=== PATIENT | male | born 1945 | race Caucasian/White ===

== ENCOUNTER → 2023-09-14 08:27 | Outpatient (REF) | payer MEDICARE, OTHER, SELFPAY | LOC: DHCBS MAIN 08:27 | PROVIDERS: ATTENDING PHYSICIAN Internal Medicine Cardiovascular Disease; FAMILY PHYSICIAN Family Medicine | DX: I35.0 Nonrheumatic aortic (valve) stenosis (principal) | CPT/HCPCS: 93306 ==

== ENCOUNTER 2024-05-13 16:04 | Emergency (ER) | payer MEDICARE, OTHER, SELFPAY ==
[2024-05-13 16:05] VITALS: BP 153/69
[2024-05-13 18:41] VITALS: BP 169/68
[2024-05-13] MEDS: ADACEL 0.5 ML IM (18:48)
--- NOTE | 2024-05-13 18:49 | ED.GENMED ---
History of Present Illness
General
Chief Complaint: Eye Problems
Source: patient and family
Exam Limitations: none
Time Seen by Provider: 05/13/24 18:04
Nursing documentation reviewed up to this point in time: agreed with
History of Present Illness
History of Present Illness:
78-year-old male A-fib on Xarelto status post cataract surgery by Dr. Rolan Guadarrama presents with right eye trauma around 435 this afternoon he was mowing the lawn a branch went into his eye he has pain and bleeding, swelling
Past History
Past History
ED Past Medical History: Arrthythmia, HTN and Hypercholesterolemia
ED Past Surgical History: Orthopedic (arthroscopic left shoulder, right knee)
Social History
Tobacco: Non-smoker
Alcohol: None
Drug: None
Personal:
Living: with family
Employment: Retired
Phy Exam
Physical Exam
Physical Exam:
Physical Exam
General: no apparent distress, not acutely ill
Neck: Right eye right lid swelling, injury to the sclera at 2:00 no apparent injury to the cornea, small laceration in the soft tissue beneath the right lid margin
Lungs: no acute respiratory distress.
Neuro: alert and oriented. no focal neurological deficits
Skin: no rash
Psychiatric: well kept. interactive and cooperative
Extremities: no edema.
Course
Orders/Labs/Results
Orders:
Orders
05/13/24 18:36
CT Head W/o Iv Contrast Urgent
Comment:
Reason For Exam: trauma
05/13/24 18:37
CT Orbits W/o Iv Contrast Stat
Comment:
Reason For Exam: trauma OD
Tetanus/Diphth/Acelpertussis [Adacel] 0.5 ml IM .ONCE ONE
05/13/24 19:56
Erythromycin (Ilotycin) [Erythromycin 0.5% Ophthalmic Ointment] See Dose Instructions OPHTH NOW STA
Oxycodone/Acetaminophen [Percocet 5/325] 1 tablet PO NOW STA
Vital Signs
Initial and Last Documented VS:
Initial Vital Signs
Temp Pulse Resp BP Pulse Ox
98 F 65 18 153/69 98
05/13/24 16:05 05/13/24 16:05 05/13/24 16:05 05/13/24 16:05 05/13/24 16:05
Last Documented Vital Signs
Temp Pulse Resp BP Pulse Ox
98 F 65 18 169/68 98
05/13/24 16:05 05/13/24 16:05 05/13/24 16:05 05/13/24 18:41 05/13/24 18:45
MDM/Problems Addressed
Differential Diagnosis Includes:
Intraocular injury, scleral laceration, scleral abrasion retrobulbar hematoma corneal abrasion
MDM/Problems Addressed:
Eye injury
Chronic conditions affecting care:
Prior cataract surgery, patient is on blood thinners for A-fib
Acute Exacerbation and/or Progression of Chronic Illness:
Prior cataract surgery patient is on blood thinners for A-fib
*Radiology
Radiology exam reviewed: radiology read reviewed
*Pulse Oximetry
Patient hypoxic: no
*Critical Care Note
Total Time (30-74mins, 75-104mins- exclusive of procedures): Not Applicable
Update Note
Update Note:
Intraocular pressure 19 in the right and left eye, did have decreased visual acuity initially, does have corneal abrasion scleral uptake around midnight CT scan shows no intracerebral hemorrhage, no retrobulbar hematoma no intraocular foreign body
or bleeding
Will repeat his visual acuities
Update, lids everted, some thick mucus removed vision improved does have a corneal abrasion around 12:00, negative swinging flashlight test no afferent pupillary defect, no worsening swelling, but this point I believe he can safely be discharged
with antibiotic ointment, he will hold his Xarelto for 24 to 48 hours as he is done this previously, follow-up with his applications system analyst the ER if worsening symptoms
ED Attending Note
-
Portions of this chart may have been created with voice recognition software.� Occasional wrong word or��sound alike� substitutions may have occurred due to the inherent limitations of voice recognition software.
Discharge Plan
Departure
Patient Disposition: Home (Routine Discharge)
Date of Disposition: 05/13/24
Time of Disposition: 19:57
Patient with high blood pressure during this ER visit?: No
Condition: Good
Discharge Problem:
Eye injuries
Instructions: Corneal Abrasion (DC), Subconjunctival Hemorrhage
Prescriptions:
No Action
simvastatin 20 MG tablet
20 mg PO HS
Vitamin C 1,000 mg Tablet Extended Release
1,000 mg PO DAILY
valsartan 160 mg Tablet
160 mg PO DAILY
Fish Oil (with DHA-EPA) Capsule
1 cap PO DAILY
Xarelto 20 mg Tablet
20 mg PO DAILY
omeprazole 40 mg Capsule,Delayed Release(Dr/Ec)
40 mg PO DAILY
calcium polycarbophil [Konsyl Fiber] 625 mg Tablet
1,250 mg PO DAILY
Referrals:
Tobin Reyna MD [Family Provider] -
Activity Restrictions/Additional Instructions:
No Xarelto today and tomorrow
Antibiotic ointment 3 times a day small amount tear right eye
Tylenol or Percocet every 4-6 hours for pain
Call your eye surgeon tomorrow to arrange follow-up care return to the ER for worsening symptoms
Interventions
Interventions:
*General Assessment Last Done: 05/13/24 18:08
Discharge Date and Time
Print Language: ARGENTINE
[2024-05-13 19:10] VITALS: BP 168/54
[2024-05-13 20:00] VITALS: BP 148/53
[2024-05-13] MEDS: PERCOCET 5/325 1 TABLET PO (20:10)
[2024-05-13] MEDS: ERYTHROMYCIN 0.5% OPHTHALMIC OINTMENT 1 APPLIC OPHTH (20:11)
== END 2024-05-13 20:35 | disposition home or self-care (01) ==
LOC: EMR 16:04
PROVIDERS: EMERGENCY PHYSICIAN Emergency Medicine; FAMILY PHYSICIAN Family Medicine
DX: S05.01XA Injury of conjunctiva and corneal abrasion without foreign body, right eye, initial encounter (principal); S01.111A Laceration without foreign body of right eyelid and periocular area, initial encounter; W22.8XXA Striking against or struck by other objects, initial encounter; Y93.H2 Activity, gardening and landscaping; Z23 Encounter for immunization; I48.91 Unspecified atrial fibrillation; I10 Essential (primary) hypertension; E78.00 Pure hypercholesterolemia, unspecified; Z79.01 Long term (current) use of anticoagulants
CPT/HCPCS: 99283; 90471; 70450; 70480; 90715

== ENCOUNTER 2024-07-09 21:03 | Observation (INO) | payer MEDICARE, OTHER, SELFPAY ==
[2024-07-09 18:03] VITALS: BP 148/59
[2024-07-09 18:19] LABS: % Basophils 0.2 % (0-2); % Immature Granulocytes 0.3 % (0-0.5); % Lymphocytes 7.2 % (20.5-51.1); % Monocytes 9.8 % (1.7-9.3); % Neutrophils 82.5 % (42.2-75.2); Absolute Lymphocytes 0.4 10^3/uL (1.2-3.4); Absolute Monocytes 0.6 10^3/uL (0.1-0.6); Absolute Neutrophils 5.1 10^3/uL (1.4-6.5); Hematocrit 36.2 % (39.0-52.0); Hemoglobin 12.7 g/dL (13.0-18.0); Mean Corp Hgb Conc. 35.1 g/dL (33.0-37.0); Mean Corpuscular Hgb 29.4 pg (27.0-31.0); Mean Corpuscular Volume 83.8 fL (80.0-94.0); Mean Platelet Volume 9.9 fL (7.4-10.4); Nucleated Red Blood Cells % 0 % (-); Platelet Count 143 10^3/uL (130-400); Red Blood Cell Count 4.32 10^6/uL (4.70-6.10); Red Cell Dist. Width 12.9 % (11.5-14.5); White Blood Cell Count 6.1 10^3/uL (4.8-10.8)
[2024-07-09 18:30] LABS: Lactic Acid 1.3 mmol/L (0.7-2.0)
[2024-07-09 18:36] LABS: COVID-19 Antigen Positive (Negative)
[2024-07-09 18:42] LABS: ALT (SGPT) 26 U/L (0-50); AST (SGOT) 30 U/L (17-59); Albumin 4.4 g/dl (3.5-5.0); Alkaline Phosphatase 65 U/L (38-126); Blood Urea Nitrogen 19 mg/dl (9-20); Calcium 8.7 mg/dl (8.4-10.2); Carbon Dioxide 20 mmol/L (22-30); Chloride 102 mmol/L (98-107); Glucose 127 mg/dl (70-99); Potassium 3.7 mmol/L (3.5-5.1); Sodium 134 mmol/L (135-145); Total Bilirubin 0.9 mg/dl (0.2-1.3); Total Protein 6.8 g/dl (6.3-8.2); Troponin I < 0.012 ng/ml; eGFR > 60.00
[2024-07-09 19:00] VITALS: BP 140/54
--- NOTE | 2024-07-09 19:37 | ED.GENMED ---
History of Present Illness
General
Chief Complaint: Fever
Source: patient
Exam Limitations: none
Time Seen by Provider: 07/09/24 18:21
History of Present Illness
History of Present Illness:
This is a 78 year old male that comes in with c/o weakness and diarrhea. States that he did not feel good yesterday. Today he was unable to get up and he had diarrhea. states that every time he tried to get up he fell backward. States that he has
had a fever, diarrhea, headache and dizziness. Deneis any chills, chest pain, SOB, abd pain, nausea, vomiting, urinary burning.
Past History
Past History
ED Past Medical History: Arrthythmia, HTN and Hypercholesterolemia
ED Past Surgical History: Orthopedic (arthroscopic left shoulder, right knee)
Social History
Tobacco: Former smoker
Alcohol: None
Drug: None
Personal:
Living: with family
Employment: Retired
Review of Systems
Review of Systems
All Other Systems: ROS reviewed and negative except as documented in HPI and ROS
Constitutional: Reports fever; Denies chills
EENT: Reports no symptoms
Respiratory: Reports no symptoms; Denies cough or trouble breathing
Cardiac: Reports no symptoms; Denies chest pain
ABD/GI: Reports diarrhea; Denies abdominal pain, nausea or vomiting
: Reports no symptoms; Denies dysuria, frequency or urgency
Musculoskeletal: Reports no symptoms
Skin: Reports no symptoms
Neurological: Reports dizzy and headache
Psychiatric: Reports no symptoms
Phy Exam
General Physical Exam
General Presentation: no apparent distress
General age: appears stated age
General Skin: warm and dry
General Habitus: elderly
General Mental: alert
General Hydration: dry mucous membranes
ENT Exam
ENT Exam: TM's normal, pharynx normal and neck supple
Eye Exam
Eye Exam: PERRL and EOMI
Cardiovascular Exam
Cardiovascular Exam: regular rate/rhythm and normal peripheral pulses
Pulmonary Exam
Pulmonary Exam: lungs clear, no respiratory distress, no rales, chest non tender, no crackles, no rhonchi, no wheezing and no cough
Gastrointestinal Exam
Gastrointestinal Exam: normal bowel sounds, non tender, soft, no organomegaly, no pulsatile mass and non distended
NIH Stroke Score
Level of Consciousness: 0 - Alert
LOC questions: 0-Answers both correctly
LOC Commands: 0-Performs both correctly
Best Gaze: 0-Normal
Visual Sow: 0=Normal, no visual loss
Facial palsy: 0=Normal, symmetrical
Motor - Right Arm: 0=No drift 10 seconds
Motor - Left Arm: 0=No drift 10 seconds
Motor - Right Le-No drift 5 seconds
Motor - Left Le-No drift 5 seconds
Limb Ataxia: 0-Absent
Sensation: 0-Normal
Best Language: 0-No aphasia
Dysarthria: 0-Normal
Extinction and Inattention: 0-No abnormality
Total Score:: 0
Musculoskeletal Exam
Musculoskeletal Exam: full ROM and no edema
Skin Exam
Skin Exam: normal color, warm/dry, no rash and no petechia
Psychiatric Exam
Psychiatric Exam: normal mood/affect
Course
Orders/Labs/Results
Orders:
Orders
07/09/24 18:05
Electrocardiogram (*1) Urgent
Reason for Study: Fatigue / Weakness
07/09/24 18:06
EKG- Treatment ONCE
07/09/24 18:07
COVID-19 Antigen Urgent
Source: Nasal Swab
Complete Blood Count/With Diff Urgent
Comprehensive Metabolic Panel Urgent
Lactic Acid Urgent
Troponin I Urgent
INF RAPID [Influenza A+B Rapid Molecular] Urgent
DYLON Source: Nasal Swab
Specimen Description:
07/09/24 18:14
CR Chest - 2 Views Urgent
Comment:
Reason For Exam: fever
07/09/24 19:36
Rectal Temp- Treatment ONCE
Urinalysis Reflex To Culture Urgent
07/09/24 19:37
STOOL [C difficile Antigen & Toxins] Urgent
DYLON Source: Feces/Stool
Specimen Description:
Stool Culture Urgent
DYLON Source: Feces/Stool
Specimen Description:
Stool For WBC Urgent
DYLON Source: Feces/Stool
Specimen Description:
0.9% Sodium Chloride 1000 ml [Nss] 1,000 ml IV BOLUS
07/09/24 19:38
CT Head W/o Iv Contrast Urgent
Comment:
Reason For Exam: unable to get up, Falls
07/09/24 20:26
Admit/Transfer Patient As Directed
Co-Sign Provider:
Level of Care: Observation services
Assign to:: Medical/Surgical
Physician / Group: hospitalist
Diagnosis: COVID 19 infection
07/09/24 20:28
PRN Pain Medication Management As Directed
May give lesser potent ordered pain med per pt: Yes
preference::
Protocol:: Medication orders for pain may be administered in a
manner that supports deferring to patient preference
when the pt is:
- Requesting an ordered lesser potent pain medication.
Least to most potent pain medications are defined
as: acetaminophen < NSAID < tramadol < opioids
(morphine, oxycodone, hydromorphone).
- Requesting a lesser dose of the same medication IF
ORDERED.
- Requesting a less intrusive route of administration
if both routes are prescribed by the provider (PO <
IV).
07/09/24 20:29
Code Status As Directed
Resuscitation Status: Full Code
Abnormal Lab Results
07/09/24
18:07
RBC 4.32 L 10^6/uL
(4.70-6.10)
Hgb 12.7 L g/dL
(13.0-18.0)
Hct 36.2 L %
(39.0-52.0)
Absolute Lymphs (auto) 0.4 L 10^3/uL
(1.2-3.4)
Neutrophils % 82.5 H %
(42.2-75.2)
Lymphocytes % 7.2 L %
(20.5-51.1)
Monocytes % 9.8 H %
(1.7-9.3)
Sodium 134 L mmol/L
(135-145)
Carbon Dioxide 20 L mmol/L
(22-30)
Glucose 127 H mg/dl
(70-99)
SARS-CoV-2 Antigen Positive A
(Negative)
07/09/24 18:07
07/09/24 18:07
H/H slightly low. carbon dioxide slightly low. Hyperglycemia. Positive for COVID. Troponin <0.012, negative for influenza.
Vital Signs
Initial and Last Documented VS:
Initial Vital Signs
Temp Pulse Resp BP Pulse Ox
98.8 F 87 18 148/59 94
07/09/24 18:03 07/09/24 18:03 07/09/24 18:03 07/09/24 18:03 07/09/24 18:03
Last Documented Vital Signs
Temp Pulse Resp BP Pulse Ox
99.1 F 81 18 140/54 93
07/09/24 19:54 07/09/24 19:30 07/09/24 19:30 07/09/24 19:00 07/09/24 18:30
MDM/Problems Addressed
Differential Diagnosis Includes:
UTI, COVID, Viral GI syndrome. Weakness
MDM/Problems Addressed:
This is a 78 year old male that comes in with c/o diarrhea and weakness. States that he was unable to get out of the chair and he had diarrhea. States that he has not felt good and had a fever.
Will check labs, Urine, CT head, COVID and give IV fluids.
Chronic conditions affecting care:
NA
Acute Exacerbation and/or Progression of Chronic Illness:
NA
*Radiology
Radiology exam reviewed: radiology read reviewed (Chest-No acute disease of the chest. Minimal right lower lobe atelectasis versus scarring. CT head-No acute intracranial findings. Senescent changes. Vascular calcifications. Scattered paranasal
sinus mucosal thickening. )
*Pulse Oximetry
Patient hypoxic: no
*EKG
Interpreted by ED Provider?: Yes
Heart Rate: 84
Rate: normal
Rhythm: sinus
[place]: left axis deviation
Interval: first degree heart block
QRS Pattern: right bundle branch block
Ischemia: T-wave inversion (III, aVF, V1, V3, )
*[facility] Interpretation
Rate: [facility]- N/A
*Critical Care Note
Total Time (30-74mins, 75-104mins- exclusive of procedures): Not Applicable
ED Attending Note
-
Portions of this chart may have been created with voice recognition software.� Occasional wrong word or��sound alike� substitutions may have occurred due to the inherent limitations of voice recognition software.
Discharge Plan
Departure
Patient Disposition: Admit
Date of Disposition: 07/09/24
Time of Disposition: 19:52
Admit to: Med/Surg
Presentation/result/management discussed w/ accepting MD/DO: Hospitalist
Patient with high blood pressure during this ER visit?: Yes
Covid-19: Confirmed COVID-19
Discharge Problem:
Weakness generalized, COVID, Diarrhea
Interventions
Interventions:
*General Assessment Last Done: 07/09/24 18:03
ED- Fall Risk Assessment Last Done: 07/09/24 19:03
ED- Neurological Assessment Last Done: 07/09/24 19:03
[2024-07-09 19:51] VITALS: BP 139/57
[2024-07-09 20:00] VITALS: BP 151/58
--- NOTE | 2024-07-09 20:09 | HPS.HSE ---
Family Physician
-
Family Physician: Tobin Reyna
Chief Complaint
-
Weakness/Fever
History of Present Illness
This is a 78-year-old male with a history of proximal atrial fibrillation on anticoagulation, hypertension, prostate cancer status post radiation, presenting with fever, weakness and diarrhea.
Patient reports that developed a cough about 2 days ago. Denies feeling short of breath. He then started to develop a poor appetite and then diarrhea. Today when he tried to get up he felt very weak and was not able to walk across the room to the
bathroom. He felt like his legs were going to give out. Patient denies vomiting. Denies any urinary symptoms including dysuria, urgency frequency. Patient denies any flank pain. He denies palpitations, chest pain, orthopnea PND or lower
extremity swelling. He denies any rash. States that there are no known sick contacts.
In the emergency department he had a positive COVID test. He reported that he had COVID vaccination about 2 months ago.
In the ED he had a temp of 99.1, oxygen saturation was 93 to 97% on room air. Blood pressure was 140/54 with a pulse of 81 and regular. ECG showed a normal sinus rhythm rate of 84 with 4 degree AV block, troponin was negative. Chest x-ray shows
no acute infiltrate. CBC was within normal limits. Electrolytes only notable for sodium of 134 but otherwise unremarkable labs.
Medical History
Past Medical History
Past Medical History: Reports Arrhythmia (Proximal atrial fibrillation), Cancer (Prostate cancer), GERD and HTN
Past Surgical History: Reports Orthopedic (Lumbar stenosis surgery) and Other
Social History
Tobacco: Non-smoker
Alcohol: Former
Drug: None
Personal:
Living: With Family
Employment: Retired
Family History
Family History: Not pertinent
Allergies / Home Medications
Allergies reflects when Allergies were last updated in [facility].
Home Medications with original date entered in [facility]
Allergy/Medication List:
Allergies
Allergy/AdvReac Type Severity Reaction Status Date / Time
No Known Allergies Allergy Verified 07/09/24 18:02
Home Medications
simvastatin 20 mg tablet 20 mg PO HS 07/29/15
omeprazole 40 mg capsule,delayed release 40 mg PO DAILY 10/01/22
rivaroxaban 20 mg tablet (Xarelto) 20 mg PO DAILY 10/01/22
Review of Systems
-
History Source: Patient
Constitutional: Reports Fever and Fatigue
EENT: Reports No Symptoms
Respiratory: Reports Cough
Cardiac: Reports No Symptoms
Abdomen/GI: Reports Diarrhea
: Reports No Symptoms
Musculoskeletal: Reports No Symptoms
Skin: Reports No Symptoms
Neurological: Reports Weakness
Endocrine: Reports No Symptoms
Hematologic/Lymphatic: Reports No Symptoms
Psych: Reports No Symptoms
Physical Exam
Vital Signs
Vital Signs
Temp Pulse Resp BP Pulse Ox
99.1 F 81 18 140/54 93
07/09/24 19:54 07/09/24 19:30 07/09/24 19:30 07/09/24 19:00 07/09/24 18:30
Physical Exam
General: Well Developed, Well Nourished, Comfortable and Conversant
HEENT: NormoCephalic, Anicteric, Moist mucous membranes and Atraumatic
Respiratory: Clear
Cardiac: S1/S2, Regular Rhythm and Murmur
Breast: Deferred by me
GI: Soft, Non Tender, Non Distended and Normal Bowel Sounds
Rectal: Deferred by Provider
Genito-urinary: Deferred by me
Musculoskeletal: No Clubbing, No Cyanosis and No Edema
Skin: Warm
Neuro: AO x 3 and Nonfocal/grossly intact
Hematologic/Lymphatic: No Lymphadenopathy
Psych: Calm
Laboratory Results
-
07/09/24 18:07
07/09/24 18:07
Laboratory Results
Lactic Acid Cancelled 07/09/24 19:36
Total Bilirubin 0.9 mg/dl (0.2-1.3) 07/09/24 18:07
AST 30 U/L (17-59) 07/09/24 18:07
ALT 26 U/L (0-50) 07/09/24 18:07
Alkaline Phosphatase 65 U/L (38-126) 07/09/24 18:07
Troponin I < 0.012 ng/ml 07/09/24 18:07
Data Reviewed
-
Diagnostic Radiology: Image Personally Visualized and interpreted and Report Reviewed by me
Medical Tests (Nuc Med, Echo, EKG etc): Image Personally Visualized and interpreted
Lab Data: Labs Reviewed by me
Old Records: Reviewed
Impression/Plan
-
IMPRESSION:
78-year-old with history of prostate cancer status post radiation, hyperlipidemia, atrial fibrillation on anticoagulation without rate control medication presenting with cough, generalized weakness, diarrhea and found to have a positive COVID test.
Oxygen saturation is normal on room air. Chest x-ray shows no acute infiltrates. Patient is hemodynamically stable and nontoxic-appearing at this time. Her last COVID vaccination was 2 months ago. Risk factors include history of prostate cancer
status post radiation as well as atrial fibrillation.
PLAN:
1. COVID w/ generalized weakness and diarrhea. Cough. NO pulmonary infiltrates, wheeze or hypoxia. Low risk.
- admit to med/surg obs
- no indication for steroids
- will hold off on paxlovid given marck risk covid with recent immunization and significant interaction requiring holding Xarelto in patient with afib CHADS2 of 3.
- can reconsider paxlovid with bridging anticoagulation or remdesivir if symptoms worsen
- supportive care with fluids, antiemetics and antitussives
- orthostatics in am
- PT
2. pAFIB - NSR here.
- no rate control agent on medications
- continue Xarelto
DVT PPX - on Xarelto
COde status - full code
[2024-07-09] MEDS: NSS 1000 IV (20:19)
[2024-07-09 23:12] VITALS: BP 145/75; BMI 27.6
[2024-07-09] MEDS: ROBITUSSIN 200 MG PO (23:15)
[2024-07-09] MEDS: TYLENOL 650 MG PO (23:15)
[2024-07-09] MEDS: LR 1000 IV (23:16)
[2024-07-10 00:23] VITALS: BMI 27.6
--- NOTE | 2024-07-10 00:32 | PTCARENOTE ---
PT IS AAOX3, is covid positive. pt has an occ cough, [place] but 97% on room air. pt placed on continuous pulse ox. pt is oriented to room w/ call ng in reach.
[2024-07-10 05:12] LABS: Urine Albumin Trace (Neg - Trace); Urine Bilirubin Negative (Negative); Urine Character Slightly Cloudy (Clear); Urine Color Yellow; Urine Glucose Negative (Negative); Urine Ketone 2+ (Negative); Urine Leukocyte Negative (Negative); Urine Nitrite Negative (Negative); Urine Occult Blood Negative (Negative); Urine Specific Gravity 1.025 (<1.030); Urine Urobilinogen Negative (Neg - 1+)
[2024-07-10 07:58] VITALS: BP 113/59
[2024-07-10 08:35] LABS: Blood Urea Nitrogen 16 mg/dl (9-20); Calcium 8.3 mg/dl (8.4-10.2); Carbon Dioxide 23 mmol/L (22-30); Chloride 106 mmol/L (98-107); Estimated Creatinine Clearance 93 ml/min; Glucose 95 mg/dl (70-99); Magnesium 2.3 mg/dl (1.6-2.3); Potassium 3.6 mmol/L (3.5-5.1); Sodium 136 mmol/L (135-145); eGFR > 60.00
--- NOTE | 2024-07-10 08:45 | W.PN.HOSP.TC ---
Today's Communication/Plan
-
Discharge planning
Assessment / Plan
Assessment / Plan
Physical exam:
General: Well Developed, Well Nourished and No Apparent Distress
HEENT: Normocephalic, Atraumatic and Moist Mucous Membranes
Respiratory: Clear to Auscultation; Negative Wheezes, Rales or Rhonchi
Cardiac: Regular Rhythm and S1/S2
GI: Soft, Nontender and Nondistended
Musculoskeletal: No Clubbing, No Cyanosis and No Edema
Neuro: Awake, Alert and Oriented
Psych: Calm
A/P:
1. COVID w/ generalized weakness and diarrhea. Cough. NO pulmonary infiltrates, wheeze or hypoxia. Low risk.
Patient does not meet criteria for any targeted treatment
Supportive care
PT eval recommended home with rolling walker
Discharge planning today
2. pAFIB - NSR here.
- no rate control agent on medications
- continue Xarelto
DVT PPX - on Xarelto
COde status - full code
Anticipated Discharge: Today
Subjective/Interval History
-
Date of Service: July 10, 2024
Patient feels well today. Mild URI symptoms. Less diarrhea. Ambulating. Oxygenating well on room air.
Objective Data
-
Labs:
Laboratory Results
07/10/24
07:28
Sodium 136
Potassium 3.6
Chloride 106
Carbon Dioxide 23
BUN 16
Creatinine 0.7
Glucose 95
Calcium 8.3 L
Vital Signs:
Vital Signs
Temp Pulse Resp BP Pulse Ox
98.7 F 82 20 113/59 96
07/10/24 07:58 07/10/24 07:58 07/10/24 07:58 07/10/24 07:58 07/10/24 07:58
I&O
07/09/24 07/10/24 07/11/24
06:59 06:59 06:59
Intake Total 940 / 940
Output Total 175 / 175
Balance 765 / 765
[2024-07-10] MEDS: PROTONIX 40 MG PO (10:39)
[2024-07-10 11:39] VITALS: O2SAT 97
--- NOTE | 2024-07-10 11:45 | CM ---
CM reviewed chart, patient Covid positive. Call placed to patients room, no response. Call placed to patients , initial assessment completed. Patient resides with in a ranch style home, few steps to the porch/into home. reports patient
has a cane that he typically does not use, is currently using a scooter as he is having issues with his ankle. denies VN or SNF for patient, reports he is current in outpatient PT, unsure of name where patient is receiving therapy. Patient PCP
Dr. Reyna, pharmacy [facility] in [place] or [facility], confirm prescription coverage. denies insecurities at home, report they have children nearby willing to assist. HARLEEN reviewed with , placed in chart. reports patient is being
discharge today, she will drop off clothes to patient. CM will watch for PT evaluations for further recommendations. CM will continue to follow for all discharge planning needs.
Plan; home with , no needs anticipated.
--- NOTE | 2024-07-10 12:24 | W.DCSUMMARY ---
Discharge Summary
Discharge Data
Date of Admission: 07/09/24
Date of Discharge: 07/10/24
-
Pending Results: No
Hospital Course
Patient is 78 years old male with history of paroxysmal A-fib on anticoagulation, hypertension, prostate cancer presented to the hospital with generalized weakness and diarrhea and fever. He was found to have COVID-19. Patient is oxygenating well
and was given some IV fluid and supportive care. Stools results pending but likely related to viral illness. Patient is hemodynamically stable and afebrile and not hypoxic and nontoxic appearance and wants to go home today. PT evaluated the
patient and felt he can go home with a rolling walker. No other events were noticed. Patient will be discharged in stable condition today.
Discharge Plan
-
Patient Disposition: Home with Home Care
Discharge Diagnosis/Procedures: Coronavirus 19 infection. Acute diarrhea.
Diet: Low Cholesterol
Activity: As tolerated
Additional Activity: Continue isolation restrictions of 10 days
Blood Work: Please PCP to order CBC, BMP within 1 week
Referrals:
Tobin Reyna MD [Family Provider] - in less than 1 week
Prescriptions:
Continued
simvastatin 20 MG tablet
20 mg PO HS
Vitamin C 1,000 mg Tablet Extended Release
1,000 mg PO DAILY
valsartan 160 mg Tablet
160 mg PO DAILY
docosahexaenoic acid-epa Capsule
1 cap PO DAILY
Xarelto 20 mg Tablet
20 mg PO DAILY
omeprazole 40 mg Capsule,Delayed Release(Dr/Ec)
40 mg PO DAILY
calcium polycarbophil 625 mg Tablet
1,250 mg PO DAILY
oxycodone-acetaminophen [Percocet] 5-325 mg tablet
1 tab PO Q4HPRN PRN (Reason: pain) Qty: 14 0RF
Discharge Orders:
Discharge Patient (As Directed); Ordered 07/10/24
Ordered By: Rohan Manley
Discharge Date and Time
Discharge Date/Time: 07/10/24 13:31
Print Language: ANGOLAN
== END 2024-07-10 13:31 | disposition home or self-care (01) ==
LOC: 4 WEST ACU 21:03
PROVIDERS: Clinical Nurse Specialist Family Health; Emergency Medicine; ADMITTING PHYSICIAN Internal Medicine; ATTENDING PHYSICIAN Hospitalist; EMERGENCY PHYSICIAN Emergency Medicine; FAMILY PHYSICIAN Family Medicine
DX: U07.1 COVID-19 (principal); R50.9 Fever, unspecified; R19.7 Diarrhea, unspecified; R53.1 Weakness; R42 Dizziness and giddiness; K21.9 Gastro-esophageal reflux disease without esophagitis; I48.0 Paroxysmal atrial fibrillation; J98.11 Atelectasis; I45.10 Unspecified right bundle-branch block; R51.9 Headache, unspecified; E78.00 Pure hypercholesterolemia, unspecified; I10 Essential (primary) hypertension; Z87.891 Personal history of nicotine dependence; Z85.46 Personal history of malignant neoplasm of prostate; Z92.3 Personal history of irradiation; Z79.01 Long term (current) use of anticoagulants
CPT/HCPCS: 70450; 71046; 80048; 80053; 81003; 83605; 83735; 84484; 85025; 87045; 87046; 87324; 87427; 87449; 87502; 87811; 89055; 93005; 96360; 97161; 99285; G0378

== ENCOUNTER 2024-08-26 09:29 | Day surgery (SDC) | payer MEDICARE, OTHER, SELFPAY ==
[2024-08-26 09:59] VITALS: BMI 31.5
--- NOTE | 2024-08-26 10:40 | ITS.CL.CARDI ---
Pt Skilled - Cardioversion
Cardioversion
Procedure Report:
Date of Procedure:
Procedure: Cardioversion
Indication: Symptomatic atrial fibrillation
Performing Physician: Alli Aguayo MD
Technique: The patient was brought to the holding area. Signed informed consent was obtained. A time out was called and performed. The patient was anesthetized by the anesthesia service. Anticoagulation status was reviewed and appropriate. R2 pads
were placed anteriorly and posteriorly. A 200 J synchronized biphasic shock restored normal sinus rhythm without significant bradycardia. There were no complications.
Conclusion: Uncomplicated cardioversion from atrial fibrillation to sinus rhythm.
Recommendation: Routine post cardioversion care. Continue moth exterminator anticoagulation.
== END 2024-08-26 11:25 | disposition home or self-care (01) ==
LOC: CATH 09:29
PROVIDERS: ATTENDING PHYSICIAN Internal Medicine Cardiovascular Disease; FAMILY PHYSICIAN Family Medicine; OTHER PHYSICIAN Internal Medicine Cardiovascular Disease
DX: I48.91 Unspecified atrial fibrillation (principal); Z79.01 Long term (current) use of anticoagulants; I10 Essential (primary) hypertension; Z79.899 Other long term (current) drug therapy
CPT/HCPCS: 92960; 93005

== ENCOUNTER 2024-10-24 07:53 | Day surgery (SDC) | payer MEDICARE, OTHER, SELFPAY ==
[2024-10-10 08:58] VITALS: BMI 31.4
[2024-10-24] VITALS (24 sets, daily range): BP systolic 90–141; BP diastolic 38–78; BMI 31.1
--- NOTE | 2024-10-24 10:03 | ITS.CL.ABL ---
[facility] - Ablation
Ablation
Procedure Report:
ELECTROPHYSIOLOGIC STUDY AND POSSIBLE ABLATION
DATE: October 24, 2024
Primary Care Provider: Dr Tobin Reyna
Primary Warehouse Operations Manager: Dr Diego Durbin
INDICATION:
Symptomatic Atrial Fibrillation.
Persistent
HISTORY: See H and P.
Symptomatic AF, poorly controlled with attempted medical therapy.
He has required multiple cardioversions for symptomatic recurrent atrial fibrillation.� Most recent cardioversion is August 26, 2024.� at his office visit September 14, 2024 he was symptomatic and back in atrial fibrillation.
Most recent echocardiogram is October 13, 2023 finding LVEF of 60%, normal biatrial dimensions.� Mild to moderate aortic stenosis with peak and mean gradients of 16 and 15 mmHg with mild aortic insufficiency.��
HAS-BLED:
Age
CHADSVASc: 2
Age
PRESENTING RHYTHM: AF
HISTORY: See H and P.
Symptomatic AF, poorly controlled with attempted medical therapy.
ANTICOAGULATION: Rivaroxaban 20 mg daily
'TIME-OUT': called and confirmed.
SEDATION/ANESTHESIA: provided via the anesthesia department using general anesthesia.
PROCEDURE:
Ultrasound Guidance with real-time visualization of needle insertion and vessel patency performed by me for femoral venous Vascular Access.
Under real-time US guidance, the needle was advanced with negative pressure into the vein. The needle was seen entering the vessel lumen with a good return of dark red flow, the syringe was removed, non-pulsatile, dark red blood low was noted and
the wire was passed without difficulty, then the needle was removed. US confirmed the wire was in the vein, not going into an artery,
Images were taken and saved for the patient's permanent record. Imaging findings typical femoral venous anatomy. Direct visualization of needle puncture into the femoral vein was observed and recorded.
A decapolar CS catheter was placed within the CS for mapping and pacing.
The intracardiac ultrasound catheter was positioned in the RA for continuous intracardiac ultrasound imaging.
Heparin bolus and infusion to target ACT at 300 -350 seconds was administered. Transseptal puncture was performed. This entailed advancing a sheath with dilator into the superior vena cava and withdrawing both (monitoring intracardiac ultrasound,
fluoroscopy and tip pressure) with the tip oriented toward the atrial septum. The fossa ovalis was engaged (indicated by sudden displacement of the sheath tip as well as tenting of the fossa seen on intracardiac ultrasound).
Transseptal puncture was performed. Left atrial catheter position was confirmed by echocardiographic imaging, pressure monitoring (LA mean pressure 21 mm Hg) and fluoroscopy. The sheath was advanced over the dilator and positioned in the left
atrium.
The [employer] multipolar mapping/ablation Sphere-9 catheter was positioned through the transseptal sheath for high density mapping.
Geometry and voltage mapping was performed using the [employer] mapping system for three-dimensional electroanatomical mapping.
Catheter positioning was guided and confirmed using both I.C.E. and fluoroscopy.
PV isolation approach was used to electrically isolate each PV ostia (LSPV, LIPV, RSPV, RIPV).
Additional energy applications/additional ablation set was required to accomplish wide area circumferential ablation around each of the pulmonary vein sets and additionally ablation to accomplish LA posterior wall ablation.
Remapping with the Sphere-9 catheter found that all PVPs were eliminated at each vein demonstrating entrance block. Also pacing around the the circumference of the ostia was performed at 10 ma and 2.0 msec output to assess for exit block. This
demonstrated electrical isolation at each of the pulmonary vein ostia (LSPV, LIPV, RSPV, RIPV). There is also entrance and exit block at the LA posterior wall.
Programmed electrostimulation failed to induce any sustained arrhythmias.
I.C.E. :
Pre-Ablation Post-Ablation
LVEF: 55 % 55 %
WMA: none none
Pericardial effusion: trace posterior trace posterior
COMPLICATIONS:
None
SUMMARY:
- Mapping and ablation to isolate the PVs
- Additional AF ablation set after PVI.
- 3-D Electroanatomical Mapping
- Intracardiac Ultrasound
- Ultrasound guidance for vascular access
Post ablation, I discussed today's findings and results with the patient's , Marlyn.
RECOMMENDATIONS:
- Observe in monitored bed.
- Maintain oral anticoagulation.
- Office visit with Dr Durbin is scheduled for 12/22/24.
Copy to:
Dr Tobin Reyna
Dr Diego Durbin
[2024-10-24] MEDS: LASIX 20 MG IV (12:39)
--- NOTE | 2024-10-24 14:25 | PTCARENOTE ---
Dr Mena approached RN to state Mr Dong's 'blood pressure is a little soft.' Pt's blood pressure has been 90's/40's-121/72. Pt's MAP has been high 50's to low 60's post PVI procedure. Pt asymptomatic and without complaints at this time. RN
received in pt's post procedure report pt's heart pressures were elevated and lasix 20 IVP was ordered and given post PVI. Pt received 850ml of NSS for procedure (anesthesia and EP staff's IVF's) per report from [facility] staff. Pt's lung sounds
post procedure were rales 1/3 up bilaterally pre lasix and fine bibasilar post lasix. Dr Mena made aware of above. Dr Mena states to make Kym ALBERT aware of pt's blood pressure. Kym ALBERT made aware and in to evaluate pt. Kym BRADFORD ordered to
continue to monitor pt's blood pressure at this time. Will continue to monitor.
--- NOTE | 2024-10-24 17:15 | W.PN.UPDATE ---
Update Note
Progress Note Update
Pt seen post PFA. Right groin site without ht/bleeding, oob ambulating, urinating without difficulty. Elevated LA pressures and close to 1L during case- mildly congested post procedure. Given 20mg IV lasix with good diuresis. SaO2 >95% and no
dyspnea/sob. Post EKG NSR 60s w/1st deg AVB, inc RBBB as before, no acute changes. Resume xarelto this evening. Followup at [facility] as scheduled. Home today if groin site/tele/airway remain stable.
[2024-10-26 13:20] LABS: ACT-LR - POC > 397 Seconds (116-155)
[2024-10-26 13:20] LABS: ACT-LR - POC > 397 Seconds (116-155)
== END 2024-10-24 17:25 | disposition home or self-care (01) ==
LOC: CATH 07:53
PROVIDERS: ATTENDING PHYSICIAN Internal Medicine Cardiovascular Disease; FAMILY PHYSICIAN Family Medicine
DX: I48.19 Other persistent atrial fibrillation (principal); I35.2 Nonrheumatic aortic (valve) stenosis with insufficiency; Z79.01 Long term (current) use of anticoagulants; I35.0 Nonrheumatic aortic (valve) stenosis; I25.10 Atherosclerotic heart disease of native coronary artery without angina pectoris; E78.00 Pure hypercholesterolemia, unspecified
CPT/HCPCS: C1766; C1730; C1894 ×2; C1892; C1759; C1733; 85347; 86900; 86901; 93005; 93656; 93657

== ENCOUNTER 2025-06-05 06:25 | Day surgery (SDC) | payer MEDICARE, OTHER, SELFPAY | END 2025-06-05 14:22 | disposition home or self-care (01) | LOC: GI 06:25 | PROVIDERS: ATTENDING PHYSICIAN Internal Medicine Gastroenterology | DX: Z12.11 Encounter for screening for malignant neoplasm of colon (principal); K64.8 Other hemorrhoids; Q43.8 Other specified congenital malformations of intestine | CPT/HCPCS: G0121 ==

== ENCOUNTER → 2025-07-04 13:40 | Outpatient (REF) | payer MEDICARE, OTHER, SELFPAY | LOC: DHSLP 13:40 | PROVIDERS: ATTENDING PHYSICIAN Family Medicine | DX: G47.33 Obstructive sleep apnea (adult) (pediatric) (principal) | CPT/HCPCS: 95800 ==

== ENCOUNTER → 2025-07-09 06:38 | Outpatient (REF) | payer MEDICARE, OTHER, SELFPAY | LOC: MRI 06:38 | PROVIDERS: FAMILY PHYSICIAN Family Medicine | DX: F03.90 Unspecified dementia, unspecified severity, without behavioral disturbance, psychotic disturbance, mood disturbance, and anxiety (principal) | CPT/HCPCS: 70551 ==